=== PATIENT | female | born 1985 | race American Indian/Alaskan Native ===

== ENCOUNTER 2016-11-22 22:02 | Emergency (ER) | payer SELFPAY ==
[2016-11-22 23:00] LABS: Alanine Aminotransferase 15 units/L (7-56); Albumin 4.6 g/dL (3.9-5); Albumin/Globulin Ratio 1.6 %; Alkaline Phosphatase 63 units/L (35-129); Anion Gap 20 mmol/L; BUN/Creatinine Ratio 14.28; Blood Urea Nitrogen 10 mg/dL (7-17); Calcium 9.3 mg/dL (8.4-10.2); Carbon Dioxide 23 mmol/L (22-30); Chloride 98.7 mmol/L (98-107); Glucose 93 mg/dL (65-100); Lipase 17 units/L (13-60); Potassium 3.9 mmol/L (3.6-5.0); Sodium 138 mmol/L (137-145); Total Protein 7.5 g/dL (6.3-8.2)
[2016-11-22 23:02] LABS: Basophils % (Auto) 0.7 % (0.0-1.8); Eosinophils % (Auto) 1.2 % (0.0-4.3); Hematocrit 40.1 % (30.3-42.9); Hemoglobin 13.1 gm/dl (10.1-14.3); Mean Corpuscular HGB Conc 33 % (30-34); Mean Corpuscular Hemoglobin 30 pg (28-32); Mean Corpuscular Volume 93 fl (79-97); Platelet Count 318 K/mm3 (140-440); Red Blood Count 4.32 M/mm3 (3.65-5.03); Red Cell Distribution Width 13.1 % (13.2-15.2); White Blood Count 6.3 K/mm3 (4.5-11.0)
[2016-11-22 23:03] LABS: Urine Drugs of Abuse Note Disclamer
[2016-11-22 23:15] LABS: Bilirubin,Urine NEG (Negative); Blood,Urine NEG (Negative); Ketones,Urine NEG (Negative); Leukocyte Esterase,Urine NEG (Negative); Mucus,Urine FEW /HPF; Nitrite,Urine NEG (Negative); Protein,Urine <15 mg/dL mg/dL (Negative); Urobilinogen,Urine < 2.0 mg/dL (<2.0)
[2016-11-23] MEDS ORDERED: ZOFRAN IV ONE (03:04)
[2016-11-23] MEDS ORDERED: NACL 0.9% 1000 ML 1,000 ML IV ONE (03:04)
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
[2016-11-23 05:44] VITALS: BP 119/72
== END 2016-11-23 06:27 | disposition home or self-care (01) ==
LOC: ED 22:02
DX: F10.120 Alcohol abuse with intoxication, uncomplicated (principal); R10.13 Epigastric pain; R11.2 Nausea with vomiting, unspecified; F12.10 Cannabis abuse, uncomplicated
CPT/HCPCS: 36415; 80053; 80307; 81001; 81025; 83690; 85025; 96361; 96374; 99283; G0480; J2405; J7030; 80320

== ENCOUNTER 2019-08-18 05:51 | Emergency (ER) | payer MEDICAID ==
[2019-08-18] MEDS ORDERED: ONDANSETRON 4 MG ODT TAB PO ONE (06:09)
[2019-08-18] MEDS ORDERED: ONDANSETRON 4 MG ODT TAB ONE (06:11)
[2019-08-18 08:26] LABS: Basophils % (Auto) 0.7 % (0.0-1.8); Eosinophils % (Auto) 0.3 % (0.0-4.3); Hematocrit 40.4 % (30.3-42.9); Hemoglobin 13.3 gm/dl (10.1-14.3); Lymphocytes % (Auto) 14.5 % (13.4-35.0); Mean Corpuscular HGB Conc 33 % (30-34); Mean Corpuscular Volume 93 fl (79-97); Monocytes # (Auto) 0.2 K/mm3 (0.0-0.8); Monocytes % (Auto) 2.8 % (0.0-7.3); Platelet Count 439 K/mm3 (140-440); Red Blood Count 4.35 M/mm3 (3.65-5.03); Red Cell Distribution Width 13.7 % (13.2-15.2)
[2019-08-18 08:48] LABS: Alanine Aminotransferase 16 units/L (7-56); Albumin 4.8 g/dL (3.9-5); BUN/Creatinine Ratio 10; Blood Urea Nitrogen 9 mg/dL (7-17); Calcium 10.3 mg/dL (8.4-10.2); Hemolysis Index 16
--- NOTE | 2019-08-18 11:12 | Emergency Department Report ---
Vomiting/Diarrhea - HPI Chief Complaint: Nausea/Vomiting/Diarrhea Stated Complaint: VOMITING/SOB/COLD SWEATS Time Seen by Provider: 08/18/19 11:07 Duration: Today Severity: moderate Nausea/Vomiting Severity: Moderate Diarrhea Severity: Moderate Pain Severity: None Symptoms: Yes Watery Diarrhea, Yes Fever, No Bloody diarrhea, No Recent Unusual Foods, No Recent Untreated Water, No Recent use of Antibiotics, No Family w/ Similar Symptoms, No Contacts w/ Similar Symptoms Other History: Ms. Mustafa is a healthy 34-year-old female with history of tobacco abuse who presents with nausea vomiting since this morning at 4 AM. She has had diarrhea for several weeks. Has had chronic cough for the past several months which she attributes to smoking. No sick contacts. She has been homebound since July 17. Lives with her partner and daughter. Denies abdominal pain. Positive subjective fever ED Review of Systems ROS: Stated complaint: VOMITING/SOB/COLD SWEATS Other details as noted in HPI Comment: All other systems reviewed and negative Constitutional: chills, fever Respiratory: denies: cough, shortness of breath Cardiovascular: denies: chest pain Gastrointestinal: nausea, vomiting. denies: abdominal pain ED Past Medical Hx - Past Medical History Previous Medical History?: No - Surgical History Past Surgical History?: No Additional Surgical History: Abnormal Pap smear with Freezing - Social History Smoking Status: Current Every Day Smoker Substance Use Type: None - Medications Home Medications: Home Medications Medication Instructions Recorded Confirmed Last Taken Type Cyclobenzaprine HCl [Flexeril 5 MG 5 mg PO TID PRN #15 tab 12/31/15 Unknown Rx TAB] Ibuprofen [Motrin 600 MG tab] 600 mg PO Q8H PRN #30 tablet 12/31/15 Unknown Rx Ondansetron [Zofran Odt] 4 mg PO Q8HR PRN #20 tab.rapdis 11/23/16 Unknown Rx Butalb/Acetamin/Caff 50-325-40 2 tab PO Q8HR PRN #20 tablet 05/12/18 Unknown Rx [Fioricet] Promethazine [Phenergan] 25 mg PO Q6HR PRN #10 tab 08/18/19 Unknown Rx Vomiting Diarrhea Exam - Exam General: Vital signs noted. No distress. Alert and acting appropriately. HEENT: Yes Moist Mucous Membranes, No Pharyngeal Erythema, No Pharyngeal Exudates, No Rhinorrhea Neck: Yes Adenopathy, No Rigidity Lungs: Yes Clear Lung Sounds, Yes Good Air Exchange, No Wheezes, No Stridor, No Cough, No Nasal Flaring, No Retractions, No Use of Accessory Muscles Heart exam: Regular: Yes, Murmur: No, Tachycardia: No Abdomen: Tenderness: No, Peritoneal Signs: No, Distention: No, Hyperactive Bowel sounds: No Skin exam: Rash: No, Edema: No, Normal turgor: Yes Neurologic: Alert and oriented, no deficits. Musculoskeletal: Unremarkable. ED Course Vital Signs 08/18/19 08/18/19 06:02 06:03 Temperature 97.7 F Pulse Rate 110 H Respiratory 18 Rate Blood Pressure 106/68 O2 Sat by Pulse 100 Oximetry ED Medical Decision Making - Lab Data Result diagrams: 08/18/19 08:04 08/18/19 08:04 Laboratory Results - last 24 hr 08/18/19 08/18/19 08:04 08:04 WBC 6.9 RBC 4.35 Hgb 13.3 Hct 40.4 MCV 93 MCH 31 MCHC 33 RDW 13.7 Plt Count 439 Lymph % (Auto) 14.5 [place] % (Auto) 2.8 Eos % (Auto) 0.3 Baso % (Auto) 0.7 Lymph # 1.0 L [place] # 0.2 Eos # 0.0 Baso # 0.0 Seg Neutrophils % 81.7 H Seg Neutrophils # 5.6 Sodium 141 Potassium 3.7 Chloride 100.5 Carbon Dioxide 19 L Anion Gap 25 BUN 9 Creatinine 0.9 Estimated GFR > 60 BUN/Creatinine Ratio 10 Glucose 92 Calcium 10.3 H Total Bilirubin 0.40 AST 21 ALT 16 Alkaline Phosphatase 81 Total Protein 8.1 Albumin 4.8 Albumin/Globulin Ratio 1.5 - Medical Decision Making Ms. Mustafa presents with nausea vomiting for the past 7 hours. No vomiting occurred in the emergency department. CBC chemistry unremarkable. Did consider possible COVID 19 infection considering current pandemic. However appears that she will be low risk without exposure. She has been homebound for the past month. I suspect influenza versus food poisoning. Prescribed medicine. Recommended hydration. Critical care attestation.: If time is entered above; I have spent that time in minutes in the direct care of this critically ill patient, excluding procedure time. ED Disposition Clinical Impression: Viral syndrome, Vomiting Disposition: DC-01 TO HOME OR SELFCARE Is pt being admited?: No Does the pt Need Aspirin: No Condition: Stable Instructions: Acute Nausea and Vomiting (ED) Prescriptions: Promethazine [Phenergan] 25 mg PO Q6HR PRN #10 tab PRN Reason: Nausea Referrals: JONNATHAN PEACOCK MD [Staff Physician] - 3-5 Days
[2019-08-18 11:39] VITALS: BP 128/77
== END 2019-08-18 11:39 | disposition home or self-care (01) ==
LOC: ED 05:51
DX: B34.9 Viral infection, unspecified (principal); F17.200 Nicotine dependence, unspecified, uncomplicated; Z79.899 Other long term (current) drug therapy
CPT/HCPCS: 36415; 80053; 85025; 99282; Q0162

== ENCOUNTER 2021-07-26 13:05 | Emergency (ER) | payer MEDICAID, OTHER ==
[2021-07-26] MEDS ORDERED: SODIUM CHLORIDE 0.9% 1000 ML 1,000 ML IV ONE (15:54)
[2021-07-26] MEDS ORDERED: ONDANSETRON 4 MG/2 ML INJ IV ONE (15:54)
[2021-07-26 16:35] LABS: Hematocrit 38.2 % (30.3-42.9); Hemoglobin 12.9 gm/dl (10.1-14.3); Mean Corpuscular HGB Conc 34 % (30-34); Mean Corpuscular Volume 92 fl (79-97); Platelet Count 393 K/mm3 (140-440); Red Blood Count 4.16 M/mm3 (3.65-5.03); Red Cell Distribution Width 13.2 % (13.2-15.2)
[2021-07-26 17:02] LABS: Alanine Aminotransferase 14 units/L (7-56); Albumin 4.1 g/dL (3.9-5); BUN/Creatinine Ratio 13; Blood Urea Nitrogen 13 mg/dL (7-17); Calcium 9.3 mg/dL (8.4-10.2); Hemolysis Index 3
[2021-07-26 19:05] LABS: Bilirubin,Urine NEG (Negative); Blood,Urine NEG (Negative); Color,Urine Yellow (Yellow); Mucus,Urine FEW /HPF; Protein,Urine <15 mg/dL mg/dL (Negative)
--- NOTE | 2021-07-26 19:56 | Emergency Department Report ---
ED N/V/D HPI - General Chief complaint: Nausea/Vomiting/Diarrhea Stated complaint: DEHYDRATED/VOMITING Time Seen by Provider: 07/26/21 15:26 Source: patient Mode of arrival: Ambulatory Limitations: No Limitations - History of Present Illness Initial comments: 36-year-old female with no past medical history presents to the emergency department for evaluation of nausea and vomiting since . She states that she had one episode of diarrhea on Monday and had a fever on Monday that has since resolved. She states that she is still having some nausea and has been unable to keep anything down the last couple of days. She denies abdominal pain, dysuria, frequency but states that she has had a headache intermittently. MD complaint: nausea, vomiting, diarrhea -: Gradual, days(s) (4) Description of Diarrhea: water Associated Abdominal Pain: No Associated Symptoms: headaches, nausea/vomiting. denies: myalgias, chest pain, cough, diaphoresis, fever/chills, loss of appetite, malaise, rash, dysuria, shortness of breath, syncope, weakness - Related Data Previous Rx's Medication Instructions Recorded Last Taken Type Cyclobenzaprine HCl [Flexeril 5 MG 5 mg PO TID PRN #15 tab 12/31/15 Unknown Rx TAB] Ibuprofen [Motrin 600 MG tab] 600 mg PO Q8H PRN #30 tablet 12/31/15 Unknown Rx Ondansetron [Zofran Odt] 4 mg PO Q8HR PRN #20 tab.rapdis 11/23/16 Unknown Rx Butalb/Acetamin/Caff 50-325-40 2 tab PO Q8HR PRN #20 tablet 05/12/18 Unknown Rx [Fioricet] Promethazine [Phenergan] 25 mg PO Q6HR PRN #10 tab 08/18/19 Unknown Rx Nitrofurantoin Wells/M-Cryst 100 mg PO Q12HR #14 capsule 07/26/21 Unknown Rx [Macrobid CAP] Ondansetron [Zofran Odt] 4 mg PO Q8HR PRN #12 tab.rapdis 07/26/21 Unknown Rx Allergies Allergy/AdvReac Type Severity Reaction Status Date / Time No Known Allergies Allergy Verified 07/26/21 13:23 ED Review of Systems ROS: Stated complaint: DEHYDRATED/VOMITING Other details as noted in HPI Comment: All other systems reviewed and negative Constitutional: denies: chills, diaphoresis, fever, malaise, weakness Eyes: denies: eye discharge, vision change ENT: denies: ear pain, throat pain, dental pain Respiratory: denies: cough, shortness of breath, SOB with exertion, SOB at rest Cardiovascular: denies: chest pain, palpitations, dyspnea on exertion, syncope, paroxysmal nocturnal dyspnea Endocrine: no symptoms reported Gastrointestinal: nausea, vomiting, diarrhea. denies: abdominal pain, hematemesis, melena, hematochezia Genitourinary: denies: urgency, dysuria, frequency, hematuria, discharge Musculoskeletal: denies: back pain Skin: denies: rash, lesions, change in color, change in hair/nails Neurological: headache. denies: weakness, numbness, paresthesias, confusion, abnormal gait, vertigo Psychiatric: denies: anxiety, depression Hematological/Lymphatic: denies: easy bleeding, easy bruising ED Past Medical Hx - Past Medical History Previous Medical History?: No - Surgical History Past Surgical History?: No Additional Surgical History: Abnormal Pap smear with Freezing - Social History Smoking Status: Current Every Day Smoker Substance Use Type: None - Medications Home Medications: Home Medications Medication Instructions Recorded Confirmed Last Taken Type Cyclobenzaprine HCl [Flexeril 5 MG 5 mg PO TID PRN #15 tab 12/31/15 Unknown Rx TAB] Ibuprofen [Motrin 600 MG tab] 600 mg PO Q8H PRN #30 tablet 12/31/15 Unknown Rx Ondansetron [Zofran Odt] 4 mg PO Q8HR PRN #20 tab.rapdis 11/23/16 Unknown Rx Butalb/Acetamin/Caff 50-325-40 2 tab PO Q8HR PRN #20 tablet 05/12/18 Unknown Rx [Fioricet] Promethazine [Phenergan] 25 mg PO Q6HR PRN #10 tab 08/18/19 Unknown Rx Nitrofurantoin Wells/M-Cryst 100 mg PO Q12HR #14 capsule 07/26/21 Unknown Rx [Macrobid CAP] Ondansetron [Zofran Odt] 4 mg PO Q8HR PRN #12 tab.rapdis 07/26/21 Unknown Rx ED Physical Exam - General Limitations: No Limitations General appearance: alert, in no apparent distress - Head Head exam: Present: atraumatic, normocephalic - Eye Eye exam: Present: normal appearance. Absent: conjunctival injection - Neck Neck exam: Present: normal inspection. Absent: tenderness, lymphadenopathy - Respiratory Respiratory exam: Present: normal lung sounds bilaterally. Absent: respiratory distress, wheezes, rales, rhonchi, stridor, chest wall tenderness, accessory muscle use - Cardiovascular Cardiovascular Exam: Present: regular rate, normal heart sounds - GI/Abdominal GI/Abdominal exam: Present: soft, normal bowel sounds. Absent: distended, tenderness, guarding, rebound, rigid - Extremities Exam Extremities exam: Present: normal inspection - Back Exam Back exam: Present: normal inspection. Absent: tenderness, CVA tenderness (R), CVA tenderness (L), paraspinal tenderness, vertebral tenderness - Neurological Exam Neurological exam: Present: alert, oriented X3 - Psychiatric Psychiatric exam: Present: normal affect, normal mood - Skin Skin exam: Present: warm, dry, intact, normal color ED Course Vital Signs 07/26/21 13:20 Temperature 98.5 F Pulse Rate 94 H Respiratory 14 Rate Blood Pressure 128/85 O2 Sat by Pulse 98 Oximetry ED Medical Decision Making - Lab Data Result diagrams: 07/26/21 16:13 07/26/21 16:13 - Medical Decision Making 36-year-old female with no past medical history presents to the emergency department for evaluation of nausea and vomiting since . She states that she had one episode of diarrhea on Monday and had a fever on Monday that has since resolved. She states that she is still having some nausea and has been unable to keep anything down the last couple of days. She denies abdominal pain, dysuria, frequency but states that she has had a headache intermittently. No gross abnormalities noted to CBC and CMP. Patient was noted to have small amount of leukocyte Estrace on UA and given persistent nausea along with history of fever, patient will be treated for urinary tract infection with 7-day course of Macrobid 100 mg twice daily. She should also have Zofran ODT 4 mg to use as needed for nausea vomiting. She was advised to take medications as prescribed, drink plenty of noncaffeinated fluids, and follow-up with primary care provider if no improvement or worsening symptoms. She verbalized understanding of and agreement with plan. Critical care attestation.: If time is entered above; I have spent that time in minutes in the direct care of this critically ill patient, excluding procedure time. ED Disposition Clinical Impression: UTI (urinary tract infection) Qualifiers: Urinary tract infection type: acute cystitis Hematuria presence: without hematuria Qualified Code(s): N30.00 - Acute cystitis without hematuria N&V (nausea and vomiting) Qualifiers: Vomiting type: unspecified Qualified Code(s): R11.2 - Nausea with vomiting, unspecified Disposition: 01 HOME / SELF CARE / HOMELESS Is pt being admited?: No Does the pt Need Aspirin: No Condition: Stable Instructions: Antibiotic Medicine, Adult, [id number], Nausea and Vomiting, Adult, [id number], Urinary Tract Infection, Adult, [id number] Additional Instructions: Take medications as prescribed. Drink plenty of noncaffeinated fluids. Follow- up with primary care provider if no improvement or worsening symptoms. Prescriptions: Nitrofurantoin Wells/M-Cryst [Macrobid CAP] 100 mg PO Q12HR #14 capsule Ondansetron [Zofran Odt] 4 mg PO Q8HR PRN #12 tab.rapdis PRN Reason: Nausea And Vomiting Referrals: [facility] [Other] - 3-5 Days Time of Disposition: 19:55
[2021-07-26 21:20] VITALS: BP 120/84
== END 2021-07-26 20:45 | disposition home or self-care (01) ==
LOC: ED 13:05
DX: N39.0 Urinary tract infection, site not specified (principal); R11.2 Nausea with vomiting, unspecified; R19.7 Diarrhea, unspecified; F17.200 Nicotine dependence, unspecified, uncomplicated; Z79.899 Other long term (current) drug therapy
CPT/HCPCS: 36415; 80053; 81001; 83690; 84703; 85027; 96361; 96374; 99283; J2405; J7030; Q0162